=== PATIENT | female | born 1965 | race Caucasian/White ===

== ENCOUNTER 2019-05-09 14:02 | Emergency (ER) | payer OTHER ==
[2019-05-09] MEDS ORDERED: ONDANSETRON HCL/PF 4 MG/ 2ML VIAL ONE (15:40)
[2019-05-09] MEDS ORDERED: PANTOPRAZOLE SODIUM INJ. 40 MG VIAL ONE (15:40)
[2019-05-20 09:46] LABS: BASOPHILS % 0.6 % (0.0-1.5); NEUTROPHILS # 6.4 # k/uL (1.4-7.7); eGFR (Non-African) > 60
--- NOTE | 2019-05-28 11:46 | Diagnostic Imaging Report ---
BETSEY BARBA [facility] [address] [facility] [address] [place], [place]. [address] Report Submission Date: May 09, 2019 3:45:15 PM CDT Patient Study Name: TRISH VICKERS Date: May 09, 2019 3:28:59 PM CDT Modality Type: CT\SR Gender: F Description: CT HEAD W/O : 63 Institution: [facility] Physician: BETSEY BARBA Examination: CT head without contrast History: DIZZINESS X4 DAYS Comparison exam: None available Technique: Noncontrast head CT protocol. Findings: Ventricles and sulci are consistent for patient age. Cerebrocerebellar parenchyma demonstrates periventricular low attenuation consistent with small vessel disease. No evidence for parenchymal hemorrhage. No evidence for mass or mass effect. No midline shift. No extra axial fluid collections. Partial visualization of the paranasal sinuses, mastoid air cells, orbits, skull and scalp without gross irregularity. Impression: Age related changes. No acute parenchymal process. No hemorrhage. Electronically signed on May 09, 2019 3:45:15 PM CDT by: Neville RICHTER
== END 2019-05-09 19:48 | disposition home or self-care (01) ==
LOC: ED 14:02
DX: R11.0 Nausea (principal); R42 Dizziness and giddiness; R19.5 Other fecal abnormalities
CPT/HCPCS: 70450; 80053; 85025; 85610; 85730; 99283; 99284; J2405; S1016